=== PATIENT | male | born 1985 | race African-American/Black ===

== ENCOUNTER 2017-11-19 11:34 | Emergency (ER) | payer MEDICAID ==
[~2017-11-19] VITALS: Ht 190.5 cm; Wt 104.0 kg
[2017-11-19] MEDS ORDERED: SODIUM CHLORIDE 0.9% 1,000 ML IV ONE (12:41)
[2017-11-19 13:14] LABS: BASOPHILS % 0.5 % (0.0-2.0); EOSINOPHILS % 1.3 % (0.0-5.0); HEMOGLOBIN. 16.6 g/dL (14.0-18.0); LYMPHOCYTES % 25.3 % (20.0-50.0); MEAN CORPUSCULAR HEMOGLOBIN 32.5 pg (28.0-32.0); MEAN CORPUSCULAR VOLUME 92.2 fL (80.0-94.0); MEAN PLATELET VOLUME 8.3 fl (7.4-10.4); MONOCYTES % 10.4 % (2.0-8.0); NEUTROPHILS % 62.5 % (40.0-76.0); PLATELET 284 x1000/uL (130-400); RED CELL DISTRIBUTION WIDTH 13.4 % (11.6-14.6)
[2017-11-19 13:20] LABS: INR 1.1; PROTHROMBIN TIME 11.3 sec (9.4-11.6)
[2017-11-19 13:28] LABS: CHLORIDE 104 mEq/L (98-107)
[2017-11-19 13:33] LABS: ETHANOL BLOOD < 10 mg/dL
[2017-11-19] MEDS ORDERED: CHLORDIAZEPOXIDE 25MG CAPSULE PO ONE (14:30)
[2017-11-19] MEDS ORDERED: CLONAZEPAM 1MG TABLET PO ONE (14:30)
[2017-11-19 16:02] LABS: CLARITY URINE CLEAR (CLEAR); COLOR URINE YELLOW (YELLOW); KETONES URINE TRACE (NEGATIVE); LEUKOCYTE ESTERASE URINE NEGATIVE (NEGATIVE); NITRITE URINE NEGATIVE (NEGATIVE); OCCULT BLOOD URINE NEGATIVE (NEGATIVE); PROTEIN URINE NEGATIVE (NEGATIVE); SPECIFIC GRAVITY URINE 1.028 (1.005-1.030)
[2017-11-19 16:19] LABS: *AMPHETAMINES SCREEN URINE PRESUMTIVE POSITIVE (NEGATIVE); *BARBITURATES SCREEN URINE NEGATIVE (NEGATIVE); *BENZODIAZEPINES SCREEN URINE PRESUMTIVE POSITIVE (NEGATIVE); *COCAINE SCREEN URINE NEGATIVE (NEGATIVE); CANNABINOID URINE SCREEN PRESUMTIVE POSITIVE (NEGATIVE); METHADONE URINE SCREEN NEGATIVE (NEGATIVE); OPIATES URINE SCREEN NEGATIVE (NEGATIVE); PHENCYCLIDINE URINE SCREEN NEGATIVE (NEGATIVE)
[2017-11-19 18:00] VITALS: BP 129/84
== END 2017-11-19 18:53 | disposition home or self-care (01) ==
LOC: ER 11:34
DX: F32.9 Major depressive disorder, single episode, unspecified (principal); F19.239 Other psychoactive substance dependence with withdrawal, unspecified; Z88.0 Allergy status to penicillin
CPT/HCPCS: 36415; 80053; 80305; 81003; 85025; 85610; 93005; 96360; 99285; G0482; J7030; Z7610

== ENCOUNTER 2018-06-05 01:17 | Emergency (ER) | payer MEDICAID ==
[~2018-06-05] VITALS: Ht 193 cm; Wt 118.0 kg
[2018-06-05] MEDS ORDERED: SODIUM CHLORIDE 0.9% 1,000 ML IV ONE (02:07)
[2018-06-05] MEDS ORDERED: ONDANSETRON HCL 4MG/2ML INJ IV STA (02:07)
[2018-06-05 02:32] LABS: BG BASE EXCESS 1.2 mmol/L (-2.0-2.0); BG CARBOXYHEMOGLOBIN 0.7 % (0.5-1.5); BG DEOXYHEMOGLOBIN 1.5 % (0.0-5.0); BG FRACTION INSPIRED OXYGEN 28; BG HCO3 ACT 26.2 mmol/L (22.0-26.0); BG METHEMOGLOBIN 0.3 % (0.0-1.5); BG OXYGEN SATURATION 98.5 % (92.0-98.5); BG OXYHEMOGLOBIN 97.5 % (94.0-97.0); BG PCO2 42.6 mmHg (35.0-45.0); BG PH 7.406 (7.350-7.450); BG PO2 130.1 mmHg (75.0-100.0); BG SAMPLE SITE RIGHT RADIAL; BG TOTAL HEMOGLOBIN 14.4 g/dL (12.0-18.0); BG VENT MODE NASAL CANNULA
[2018-06-05 03:25] LABS: CHLORIDE 106 mEq/L (98-107)
[2018-06-05 03:29] LABS: ETHANOL BLOOD < 10 mg/dL
[2018-06-05 03:33] LABS: AMMONIA < 10 uMol/L (<32); CREATINE KINASE 111 IU/L (39-308)
[2018-06-05 03:42] LABS: BASOPHILS % 0.3 % (0.0-2.0); EOSINOPHILS % 0.6 % (0.0-5.0); HEMATOCRIT. 39.3 % (42.0-52.0); HEMOGLOBIN. 13.6 g/dL (14.0-18.0); LYMPHOCYTES % 13.8 % (20.0-50.0); MEAN CORPUSCULAR HEMOGLOBIN 32.1 pg (28.0-32.0); MEAN CORPUSCULAR VOLUME 92.8 fL (80.0-94.0); MEAN PLATELET VOLUME 8.2 fl (7.4-10.4); MONOCYTES % 9.1 % (2.0-8.0); NEUTROPHILS % 76.2 % (40.0-76.0); PLATELET 242 x1000/uL (130-400); RED BLOOD CELL COUNT 4.24 mill/uL (4.7-6.1)
[2018-06-05 03:55] LABS: CLARITY URINE CLEAR (CLEAR); COLOR URINE YELLOW (YELLOW); KETONES URINE NEGATIVE (NEGATIVE); LEUKOCYTE ESTERASE URINE NEGATIVE (NEGATIVE); NITRITE URINE NEGATIVE (NEGATIVE); OCCULT BLOOD URINE NEGATIVE (NEGATIVE); PH URINE 5.5 (4.5-8.0); PROTEIN URINE NEGATIVE (NEGATIVE); SPECIFIC GRAVITY URINE 1.013 (1.005-1.030); UROBILINOGEN URINE 0.2 E.U./dL (0.2-1.0)
[2018-06-05 04:38] LABS: *AMPHETAMINES SCREEN URINE PRESUMTIVE POSITIVE (NEGATIVE); *BARBITURATES SCREEN URINE NEGATIVE (NEGATIVE)
[2018-06-05 04:39] LABS: *BENZODIAZEPINES SCREEN URINE PRESUMTIVE POSITIVE (NEGATIVE); *COCAINE SCREEN URINE NEGATIVE (NEGATIVE); CANNABINOID URINE SCREEN NEGATIVE (NEGATIVE); METHADONE URINE SCREEN NEGATIVE (NEGATIVE); OPIATES URINE SCREEN NEGATIVE (NEGATIVE); PHENCYCLIDINE URINE SCREEN NEGATIVE (NEGATIVE)
[2018-06-05 15:23] VITALS: BP 132/86
== END 2018-06-05 15:25 | disposition home or self-care (01) ==
LOC: ER 01:17
DX: G92 Toxic encephalopathy (principal); T43.591A Poisoning by other antipsychotics and neuroleptics, accidental (unintentional), initial encounter; F41.9 Anxiety disorder, unspecified; F32.9 Major depressive disorder, single episode, unspecified; Z88.0 Allergy status to penicillin; Y92.89 Other specified places as the place of occurrence of the external cause
CPT/HCPCS: 36415; 36600; 51702; 70450; 71045; 80053; 80305; 80307; 80329; 81003; 82140; 82375; 82550; 82805; 83605; 84484; 85025; 93005; 96374; 99291; G0482; J2405; J7030; Z7610; A4315

== ENCOUNTER 2021-05-09 12:35 | Emergency (ER) | payer MEDICAID ==
[~2021-05-09] VITALS: Ht 193 cm; Wt 145.0 kg
[2021-05-09] MEDS ORDERED: MAGNESIUM/ALUMINUM HYDROXIDE/SIMETHICONE 30ML UDC PO STA (13:00)
[2021-05-09] MEDS ORDERED: SODIUM CHLORIDE 0.9% 1,000 ML IV ONE (13:00)
[2021-05-09] MEDS ORDERED: VISCOUS LIDOCAINE 2% 15 ML UDC PO STA (13:00)
[2021-05-09] MEDS ORDERED: PROCHLORPERAZINE MALEATE 10MG TABLET PO ONE (13:00)
[2021-05-09] MEDS ORDERED: LORAZEPAM 2MG/ML CPJ IV SCH (13:30)
[2021-05-09 14:21] LABS: BASOPHILS % 0.9 % (0.0-2.0); EOSINOPHILS % 1.2 % (0.0-5.0); HEMATOCRIT. 43.3 % (42.0-52.0); HEMOGLOBIN. 15.6 g/dL (14.0-18.0); LYMPHOCYTES % 32.6 % (20.0-50.0); MEAN CORPUSCULAR HEMOGLOBIN 33.5 pg (28.0-32.0); MEAN CORPUSCULAR VOLUME 93.2 fL (80.0-94.0); MONOCYTES % 11.2 % (2.0-8.0); NEUTROPHILS % 54.1 % (40.0-76.0); PLATELET 263 x1000/uL (130-400); RED BLOOD CELL COUNT 4.64 mill/uL (4.7-6.1); RED CELL DISTRIBUTION WIDTH 13.4 % (11.6-14.6)
[2021-05-09 14:26] LABS: CHLORIDE 104 mEq/L (98-107)
[2021-05-09 14:31] LABS: ETHANOL BLOOD 81 mg/dL
[2021-05-09 15:10] LABS: METHADONE URINE SCREEN NEGATIVE (NEGATIVE)
[2021-05-09 15:11] LABS: *BARBITURATES SCREEN URINE NEGATIVE (NEGATIVE); *BENZODIAZEPINES SCREEN URINE PRESUMTIVE POSITIVE (NEGATIVE); *COCAINE SCREEN URINE NEGATIVE (NEGATIVE); CANNABINOID URINE SCREEN PRESUMTIVE POSITIVE (NEGATIVE); OPIATES URINE SCREEN NEGATIVE (NEGATIVE); PHENCYCLIDINE URINE SCREEN NEGATIVE (NEGATIVE)
[2021-05-09 15:14] LABS: *AMPHETAMINES SCREEN URINE NEGATIVE (NEGATIVE)
[2021-05-09] MEDS ORDERED: SODIUM CHLORIDE 0.9% 500 ML IV ONE (15:15)
[2021-05-09] MEDS ORDERED: MAG-55 MT (15:41)
[2021-05-09] MEDS ORDERED: PROT40 MT (15:41)
[2021-05-09] MEDS ORDERED: HYDR-3782 MT (15:41)
[2021-05-09 16:30] VITALS: BP 161/121
== END 2021-05-09 16:35 | disposition home or self-care (01) ==
LOC: ER 12:35
DX: K21.9 Gastro-esophageal reflux disease without esophagitis (principal); F41.0 Panic disorder [episodic paroxysmal anxiety]; I10 Essential (primary) hypertension; I51.7 Cardiomegaly; F32.9 Major depressive disorder, single episode, unspecified; F10.20 Alcohol dependence, uncomplicated; Y90.4 Blood alcohol level of 80-99 mg/100 ml; Z98.890 Other specified postprocedural states; Z88.0 Allergy status to penicillin
CPT/HCPCS: 36415; 71045; 80053; 80305; 80320; 83690; 85025; 85379; 93005; 96361; 96374; 99285; J2060; J7030; J7040; Q0164; G0480

== ENCOUNTER 2021-11-22 13:30 | Emergency (ER) | payer MEDICAID, OTHER ==
[~2021-11-22] VITALS: Ht 193 cm; Wt 159.0 kg
[~2021-11-22 13:30] MED LIST: HYDR-3782 MT; MAG-55 MT; PROT40 MT
[2021-11-22 13:39] VITALS: BP 196/134
== END 2021-11-22 17:03 | disposition left against medical advice (07) ==
LOC: ER 13:30
DX: R05.9 Cough, unspecified (principal); I49.9 Cardiac arrhythmia, unspecified; Z53.21 Procedure and treatment not carried out due to patient leaving prior to being seen by health care provider
CPT/HCPCS: 93005

== ENCOUNTER 2023-04-09 12:41 | Emergency (ER) | payer MEDICAID, OTHER ==
[~2023-04-09] VITALS: Ht 190.5 cm; Wt 149.5 kg
[2023-04-09 12:56] VITALS: O2SAT 97
[2023-04-09 14:24] LABS: BASOPHILS % 0.4 % (0.0-2.0); EOSINOPHILS % 2.1 % (0.0-5.0); HEMATOCRIT. 48.6 % (42.0-52.0); HEMOGLOBIN. 16.3 g/dL (14.0-18.0); LYMPHOCYTES % 22.8 % (20.0-50.0); MEAN CORPUSCULAR HEMOGLOBIN 31.6 pg (28.0-32.0); MEAN CORPUSCULAR HGB CONC 33.6 g/dL (31.0-37.0); MEAN CORPUSCULAR VOLUME 94.1 fL (80.0-94.0); MEAN PLATELET VOLUME 8.5 fl (7.4-10.4); MONOCYTES % 10.8 % (2.0-8.0); NEUTROPHILS % 63.9 % (40.0-76.0); PLATELET 282 x1000/uL (130-400); RED BLOOD CELL COUNT 5.16 mill/uL (4.7-6.1); RED CELL DISTRIBUTION WIDTH 13.4 % (11.6-14.6); WHITE BLOOD COUNT 6.4 x1000/uL (4.5-11.0)
[2023-04-09 14:32] LABS: CHLORIDE 106 mEq/L (98-107); INDEX HEMOLYSI 1 (1-3); INDEX ICTERIC 1 (1-4); INDEX LIPEMIC 1 (1-3); POTASSIUM 4.2 mEq/L (3.5-5.1); SODIUM 136 mEq/L (136-145)
[2023-04-09 14:40] LABS: ALANINE AMINOTRANSFERASE 48 IU/L (13-61); ALBUMIN 4.1 g/dL (3.4-5.0); ASPARTATE AMINOTRANSFERASE 25 IU/L (15-37); BILIRUBIN TOTAL 0.5 mg/dL (0.1-1.0); CALCIUM 9.2 mg/dL (8.5-10.1); CARBON DIOXIDE 23 mEq/L (21-32); CREATININE 0.8 mg/dL (0.6-1.3); GLUCOSE 128 mg/dL (70-105); PROTEIN TOTAL 8.4 g/dL (6.0-8.3); UREA NITROGEN BLOOD 13 mg/dL (7-21)
[2023-04-09] MEDS ORDERED: DEXAMETHASONE 10 MG/ML VIAL IV ONE (14:45)
[2023-04-09 17:46] LABS: CLARITY URINE CLEAR (CLEAR); COLOR URINE YELLOW (YELLOW); GLUCOSE URINE NEGATIVE (NEGATIVE); KETONES URINE NEGATIVE (NEGATIVE); LEUKOCYTE ESTERASE URINE NEGATIVE (NEGATIVE); NITRITE URINE NEGATIVE (NEGATIVE); OCCULT BLOOD URINE TRACE (NEGATIVE); PH URINE 5.5 (4.5-8.0); PROTEIN URINE TRACE (NEGATIVE); UROBILINOGEN URINE 0.2 E.U./dL (0.2-1.0)
[2023-04-09 17:49] LABS: YEAST URINE NONE SEEN
[2023-04-09 18:11] LABS: BACTERIA URINE 1+; SQUAMOUS EPITHELIAL CELL URINE FEW /lpf (RARE/1+)
[2023-04-09 18:12] LABS: RBC URINE 0-2 /hpf (0-2); WBC URINE 0-2 /hpf (0-2)
[2023-04-09 19:30] VITALS: BP 146/87; PULSE 94; RESP 18; TEMP 97.8
== END 2023-04-09 19:57 | disposition left against medical advice (07) ==
LOC: ER 12:41 → CANBEDREQ 17:13 → ER 19:57
DX: M54.50 Low back pain, unspecified (principal); I10 Essential (primary) hypertension; Z98.890 Other specified postprocedural states
CPT/HCPCS: 99291; 72148; 96374; 80053; 81003; 85025; 36415; J1100